=== PATIENT | male | born 1955 | race Caucasian/White ===

== ENCOUNTER 2018-08-30 11:47 | Emergency (ER) | payer OTHER ==
[2018-08-30 11:57] VITALS: PULSE 86; TEMP 97.7; BMI 19.2
--- NOTE | 2018-08-30 12:43 | PDOC ---
History of Present Illness - General Chief Complaint: Wound Stated Complaint: ABCESS TO UPPER BACK Time Seen by Provider: 08/30/18 12:04 History Source: Patient Exam Limitations: No Limitations - History of Present Illness Initial Comments: 08/30/18 12:37 63 yo male no pmhx here with c/o left upper back abscess. has had 3 times prior in same location. did see a surgeon many years ago for what he thought was definitive management. no f/c no other complaints. has tried to drain it at home. Past History - Past Medical History Allergies/Adverse Reactions: Allergies Allergy/AdvReac Type Severity Reaction Status Date / Time No Known Allergies Allergy Unverified 08/30/18 11:50 Home Medications: Ambulatory Orders Sulfamethoxazole/Trimethoprim [Bactrim Ds Tablet] 1 each PO BID #14 tablet 08/30 COPD: No Other medical history: DENIES - Suicide/Smoking/Psychosocial Hx Smoking History: Current every day smoker Number of Cigarettes Smoked Daily: 10 Information on smoking cessation initiated: Yes 'Breaking Loose' booklet given: 08/30/18 Hx Alcohol Use: Yes (RARE) Drug/Substance Use Hx: No Substance Use Type: Alcohol Review of Systems - Review of Systems Constitutional: No: Chills, Diaphoresis, Fever Respiratory: No: Cough Cardiac (ROS): No: Chest Pain : No: Burning, Dysuria, Discharge Musculoskeletal: No: Back Pain, Gout All Other Systems: Reviewed and Negative *Physical Exam - Vital Signs Last Vital Signs Temp Pulse Resp BP Pulse Ox 97.7 F 86 16 132/78 96 08/30/18 11:49 08/30/18 11:49 08/30/18 11:49 08/30/18 11:49 08/30/18 11:49 - Physical Exam Comments: 08/30/18 12:39 awake alert lungs clear bilaterally heart rrr no mrg abd soft nt nd. ext wwp. no edeam. skin : centrla thoracic back wtih 1 x 2 in fluctuant cyst, central pus expressable. minimal surrounding erythema. Procedures - Incision and Drainage I&D Site: Bilateral: Other (back ) Betadine cleansed: No Anesthesia: 1% Lidocaine Volume(ml): 3 Blade Size: 11 Attempts: 1 Plain Packing: No Medical Decision Making - Medical Decision Making 08/30/18 12:40 pt with thoracic back abscess. plan I & D bactrim and minley surgical followup . *DC/Admit/Observation/Transfer Diagnosis at time of Disposition: Abscess - Discharge Dispostion Disposition: HOME Condition at time of disposition: Improved - Prescriptions Prescriptions: Sulfamethoxazole/Trimethoprim [Bactrim Ds Tablet] 1 each PO BID #14 tablet - Referrals Referrals: Saúl Lieberman MD [Staff Physician] - - Patient Instructions Printed Discharge Instructions: DI for Incision and Drainage of a Skin Abscess Additional Instructions: you had an abscess drained today on your back. you should wash it in warm soap and water twice daily. follow up with a surgeon DR Lieberman, see referral for information. take bactrim DS twice daily x one week. return for any redness, fever or any concerns. - Post Discharge Activity
[2018-08-30 13:25] VITALS: BP 117/71
== END 2018-08-30 13:26 | disposition home or self-care (01) ==
LOC: FER 11:47
PROC: 0H96XZZ Drainage of Back Skin, External Approach (ICD-10-PCS; principal; 2018-08-30)
DX: L02.212 Cutaneous abscess of back [any part, except buttock and flank] (principal); F17.210 Nicotine dependence, cigarettes, uncomplicated
CPT/HCPCS: 99281-25